=== PATIENT | male | born 2000 | race Two or more races ===

== ENCOUNTER 2024-03-29 22:21 | Emergency (ER) | payer MEDICAID, OTHER ==
[~2024-03-29] VITALS: Ht 175.3 cm; Wt 68.0 kg
[2024-03-29 23:35] VITALS: PULSE 84; RESP 18; O2SAT 96
[2024-03-29] MEDS: ONDANSETRON HCL 4 MG/2 ML VIAL IV ONE (23:53)
[2024-03-29] MEDS: MORPHINE SULFATE 4 MG/ML SYR/VIAL IV ONE (23:54)
[2024-03-29 23:57] LABS: Urine Bacteria None Seen /hpf (None Seen); Urine WBC None Seen /hpf (0 - 3)
[2024-03-30 00:19] LABS: Urine Blood 2+ /uL (Negative); Urine Clarity Clear (Clear); Urine Color Colorless (Yellow); Urine Protein, UAD Negative (Negative); Urine Specific Gravity 1.001 (1.001-1.035); Urine Urobilinogen Normal (Negative)
[2024-03-30] MEDS ORDERED: HYDR-4798 PO (01:40)
[2024-03-30] MEDS ORDERED: CYCL-837 PO (01:40)
[2024-03-30 02:30] VITALS: TEMP 98.2; O2SAT 98
[2024-03-30] MEDS: ONDANSETRON HCL 4 MG/2 ML VIAL IV ONE (02:33)
[2024-03-30] MEDS: HYDROmorphone HCL 2 MG/ML VL/or syr IV ONE (02:34)
[2024-03-30 03:04] VITALS: BP 105/66; PULSE 75; RESP 18
== END 2024-03-30 02:49 | disposition home or self-care (01) ==
LOC: ER 22:21 → EDBD 22:21 → ER 03-30 02:49
DX: S70.02XA Contusion of left hip, initial encounter (principal); S50.812A Abrasion of left forearm, initial encounter; S50.811A Abrasion of right forearm, initial encounter; R51.9 Headache, unspecified; V49.9XXA Car occupant (driver) (passenger) injured in unspecified traffic accident, initial encounter; Y93.89 Activity, other specified; Y92.89 Other specified places as the place of occurrence of the external cause; Y99.8 Other external cause status
CPT/HCPCS: 70450; 71250; 72125; 74176; 81001; 96374; 96375; 96376; 99285; J1170; J2270; J2405